=== PATIENT | female | born 1965 | race African-American/Black ===

== ENCOUNTER 2016-12-15 14:32 | Emergency (ER) | payer SELFPAY ==
[~2016-12-15] VITALS: Ht 172.7 cm; Wt 63.5 kg
[2016-12-15 14:34] VITALS: BP 106/70
[2016-12-15] MEDS ORDERED: ERYT1OIN6 OS (15:37)
--- NOTE | 2016-12-15 15:38 | PHYS DOC ---
Past Medical History Past Medical History: No Pertinent History Past Surgical History: Other Additional Past Surgical Histo: CHEST TUBES R/T RIB FX Additional Information: nonsmoker Alcohol Use: Occasionally Drug Use: Marijuana Adult General Chief Complaint Chief Complaint: EYE PROBLEMS HPI HPI Patient is a 51 year old female who presents with left lower eyelid swelling for 1 month. She states that it has swollen more over the last week with drainage from the eye. She denies change in her vision, eye pain, or fevers. She denies any injury to her eye. She does not wear contact lenses. She does not have a PCP. Review of Systems Review of Systems Constitutional: Denies fever or chills. [] Eyes: Denies change in visual acuity, redness, or eye pain. Reports left lower eyelid swelling with drainage. HENT: Denies ear pain, nasal congestion or sore throat. [] Integument: Denies rash or skin lesions. [] Neurologic: Denies headache, focal weakness or sensory changes. [] Allergies Allergies Allergies Coded Allergies Type Severity Reaction Last Updated Verified No Known Drug Allergies 12/15/16 No Physical Exam Physical Exam Constitutional: Well developed, well nourished, no acute distress, non-toxic appearance. [] HENT: Normocephalic, atraumatic, bilateral external ears normal, oropharynx moist, no oral exudates, nose normal. [] Eyes: PERRLA, EOMI, conjunctiva normal, no discharge. Left lower eyelid internal hordeolum. Skin: Warm, dry, no erythema, no rash. [] Neurologic: Alert and oriented X 3, normal motor function, normal sensory function, no focal deficits noted. [] Psychologic: Affect normal, judgement normal, mood normal. [] Current Patient Data Vital Signs Vital Signs Date Time Temp Pulse Resp B/P Pulse Ox O2 Delivery O2 Flow Rate FiO2 12/15/16 14:34 97.9 84 16 106/70 99 Room Air 97.9 EKG EKG [] Radiology/Procedures Radiology/Procedures [] Course & Med Decision Making Course & Med Decision Making Pertinent Labs and Imaging studies reviewed. (See chart for details) [] Dragon Disclaimer Dragon Disclaimer This electronic medical record was generated, in whole or in part, using a voice recognition dictation system. Departure Departure Impression: Primary Impression: Internal hordeolum of left eye Disposition: HOME, SELF-CARE Condition: STABLE Referrals: Irene STAPLES MD Patient Instructions: Sty Additional Instructions: You were seen today for a stye. Please use the prescribed antibiotics for 1 week in the eye. Please follow up with the aerodynamics engineer listed below if you have any concerns. Return to the emergency department if you have any new or concerning symptoms. Scripts Erythromycin Base (Erythromycin)3.5 Gm Oint...g.1 Senthil OS TID 7 Days Prov:NAE BARAJAS 12/15/16 Problem Qualifiers Primary Impression: Internal hordeolum of left eye Eyelid: lower Qualified Code: H00.025 - Hordeolum internum left lower eyelid NAE BARAJAS Dec 15, 2016 15:38
== END 2016-12-15 15:41 | disposition home or self-care (01) ==
LOC: ER 14:32
DX: H00.025 Hordeolum internum left lower eyelid (principal); F12.10 Cannabis abuse, uncomplicated
CPT/HCPCS: 99283